=== PATIENT | female | born 1985 | race Caucasian/White ===

== ENCOUNTER 2017-02-14 16:46 | Outpatient (CLI) | payer OTHER ==
[~2017-02-14] VITALS: Ht 157.5 cm; Wt 84.4 kg
[2017-02-14 17:27] VITALS: BP 120/66
[2017-02-14 17:28] LABS: EOSINOPHIL (%) 0.3 % (0-5); HEMATOCRIT 41.1 % (36.0-46.0); IMMATURE GRANULOCYTE (%) 0.6 % (0.0-0.7); IMMATURE GRANULOCYTE COUNT 0.1 K/uL; INSTRUMENT ABS NEUTROPHIL CT 7.4 K/uL; LYMPHOCYTE COUNT 1.7 K/uL (1.0-2.8); MCH 30.8 PG (29.0-34.0); MCHC 34.5 G/DL (30.0-36.0); MCV 89.2 FL (83-99); MEAN PLAT.VOLUME 11.2 uM^3 (9.5-12.4); MONOCYTE (%) 6.1 % (3-12); MONOCYTE COUNT 0.6 K/uL (0-0.8); NEUTROPHIL (%) 75.9 % (45-76); NEUTROPHIL COUNT 7.4 K/uL (1.8-6.4); PLATELET COUNT 189 K/uL (156-360); RBC DIS.WIDTH-CV 13.1 % (11.8-14.6); RBC DIS.WIDTH-SD 42.9 % (39-53); RED BLOOD COUNT 4.61 M/uL (3.80-5.20); WHITE BLOOD COUNT 9.8 K/uL (4.1-10.2)
[2017-02-14 17:42] LABS: ANION GAP 8 MEQ/L (2-14); CHLORIDE 102 MEQ/L (99-109); POTASSIUM 2.7 MEQ/L (3.7-5.4); SAMPLE HEMOLYSIS CHECK 0; SAMPLE ICTERIC CHECK 0; SAMPLE LIPEMIA CHECK 0; SODIUM 139 MEQ/L (136-147); TOTAL BILIRUBIN 0.4 MG/DL (0.0-1.0)
[2017-02-14 17:47] LABS: ALKALINE PHOSPHATASE 64 IU/L (3-129); GFR ESTIMATE (CALCULATED) > 59 mL/min/; GLUCOSE 85 mg/dL (70-99); LACTATE DEHYDROGENASE 145 IU/L (20-246); UREA NITROGEN (BUN) 7 mg/dL (9-23); URIC ACID 3.8 mg/dL (3.1-9.2)
[2017-02-14 17:59] VITALS: BP 117/68
[2017-02-14 18:28] VITALS: BP 110/65
[2017-02-14 19:09] LABS: UR CREATININE CONCENTRATION 27.4 MG/DL
== END 2017-02-14 18:52 | disposition home or self-care (01) ==
LOC: LDRP-OP 16:46 → 2WEST 16:47
PROVIDERS: Obstetrics & Gynecology Gynecology
DX: O16.2 Unspecified maternal hypertension, second trimester (principal); Z3A.27 27 weeks gestation of pregnancy; R42 Dizziness and giddiness; R51 Headache
CPT/HCPCS: 59025; 80053; 82570; 83615; 84156; 84550; 85025; G0378

== ENCOUNTER 2017-05-11 19:35 | Inpatient (IN) | payer OTHER ==
[2017-05-11] VITALS (7 sets, daily range): BP systolic 108–127; BP diastolic 58–76
[~2017-05-11] VITALS: Ht 157.5 cm; Wt 94.0 kg
[2017-05-11] MEDS ORDERED: PRENATAL TABLE1 EAC3 PO (20:02)
[2017-05-11 20:23] LABS: EOSINOPHIL (%) 0.5 % (0-5); EOSINOPHIL COUNT 0.1 K/uL (0-0.3); HEMATOCRIT 42.4 % (36.0-46.0); IMMATURE GRANULOCYTE (%) 0.6 % (0.0-0.7); IMMATURE GRANULOCYTE COUNT 0.1 K/uL; INSTRUMENT ABS NEUTROPHIL CT 7.8 K/uL; LYMPHOCYTE COUNT 1.8 K/uL (1.0-2.8); MCH 30.7 PG (29.0-34.0); MCHC 34.7 G/DL (30.0-36.0); MCV 88.5 FL (83-99); MEAN PLAT.VOLUME 11.7 uM^3 (9.5-12.4); MONOCYTE (%) 7.2 % (3-12); MONOCYTE COUNT 0.8 K/uL (0-0.8); NEUTROPHIL (%) 74.3 % (45-76); NEUTROPHIL COUNT 7.8 K/uL (1.8-6.4); PLATELET COUNT 147 K/uL (156-360); RBC DIS.WIDTH-CV 13.3 % (11.8-14.6); RBC DIS.WIDTH-SD 42.9 % (39-53); RED BLOOD COUNT 4.79 M/uL (3.80-5.20); WHITE BLOOD COUNT 10.5 K/uL (4.1-10.2)
[2017-05-11] MEDS ORDERED: IBUPROFEN800 MG PO (21:19)
[2017-05-12 07:48] VITALS: BP 110/66
[2017-05-12 16:15] VITALS: BP 130/71
[2017-05-12 22:40] VITALS: BP 123/67
[2017-05-13 08:49] VITALS: BP 109/63
== END 2017-05-13 12:40 | disposition home or self-care (01) | DRG 775 ==
LOC: LDRP-OP 19:35 → 2WEST 19:36 → LDRP-OP 06-16 13:40
PROVIDERS: Midwife
PROC: 10E0XZZ Delivery of Products of Conception, External Approach (ICD-10-PCS; principal; 2017-05-11)
DX: O70.0 First degree perineal laceration during delivery (principal); O99.824 Streptococcus B carrier state complicating childbirth; O99.214 Obesity complicating childbirth; E66.9 Obesity, unspecified; Z68.32 Body mass index [BMI] 32.0-32.9, adult; Z3A.39 39 weeks gestation of pregnancy; Z37.0 Single live birth
CPT/HCPCS: 85025; J2540